=== PATIENT | male | born 1985 ===

== ENCOUNTER 2021-05-13 06:30 | Emergency (ER) | payer OTHER ==
[~2021-05-13] VITALS: Ht 182.9 cm; Wt 77.1 kg
[2021-05-13 07:46] VITALS: BP 132/93
== END 2021-05-13 08:01 | disposition home or self-care (01) ==
LOC: ER 06:30
DX: S01.01XA Laceration without foreign body of scalp, initial encounter (principal); W22.8XXA Striking against or struck by other objects, initial encounter; Y93.89 Activity, other specified; Y92.89 Other specified places as the place of occurrence of the external cause; Y99.8 Other external cause status
CPT/HCPCS: 12001